=== PATIENT | female | born 1985 | race Caucasian/White ===

== ENCOUNTER 2023-01-26 18:14 | Emergency (ER) | payer BC ==
[~2023-01-26] VITALS: Ht 152.4 cm; Wt 54.4 kg
[2023-01-26 18:19] VITALS: BP_SYST 155; PULSE 91; RESP 18; TEMP 97.7; O2SAT 98
[2023-01-26 19:33] VITALS: BP_SYST 155; PULSE 91; RESP 18; TEMP 97.7; O2SAT 98
== END 2023-01-26 19:33 | disposition home or self-care (01) ==
LOC: SED 18:14
DX: Z02.89 Encounter for other administrative examinations (principal); R51.9 Headache, unspecified; Z79.899 Other long term (current) drug therapy
CPT/HCPCS: 70450-TC; 76376; 99284